=== PATIENT | male | born 1990 | race Caucasian/White ===

== ENCOUNTER 2022-01-31 19:53 | Emergency (ER) | payer OTHER ==
[~2022-01-31] VITALS: Ht 175.3 cm; Wt 137.3 kg
[2022-01-31 19:56] VITALS: BP 148/90
[2022-01-31] MEDS ORDERED: ALBU8HFA IH (20:03)
== END 2022-01-31 21:15 | disposition home or self-care (01) ==
LOC: EMS 19:57
DX: M79.602 Pain in left arm (principal); J45.909 Unspecified asthma, uncomplicated; F12.90 Cannabis use, unspecified, uncomplicated; F15.90 Other stimulant use, unspecified, uncomplicated; F17.210 Nicotine dependence, cigarettes, uncomplicated; Z79.899 Other long term (current) drug therapy
CPT/HCPCS: 93005; 99283